=== PATIENT | female | born 2000 | race Caucasian/White ===

== ENCOUNTER → 2021-10-13 | Outpatient (CLI) | payer OTHER ==
--- NOTE | 2021-10-14 06:02 | REP ---
INDICATION: ANATOMY COMPARISON: None. TECHNIQUE: Transabdominal obstetrical ultrasound with color Doppler evaluation. FINDINGS: Examination demonstrates a single live intrauterine in transverse presentation. motion is identified by technologist. Placenta is noted anterior and grade 1 without evidence for placenta previa or abruption. Amniotic fluid volume is normal. Cervix measures 4.1 cm in length and appears closed.. Selected gestational age: 28 weeks 0 days with SCOT 01/05/2022. Gestational age by current measurements 27 weeks 3 days with SCOT 01/09/2022. FHR equals 150 beats per minute. BPD: 6.7 cm; 27 weeks 0 days; 29% HC: 25.6 cm; 27 weeks 6 days; 47% AC: 23.0 cm; 27 weeks 2 days; 36% FL: 5.1 cm; 27 weeks 3 days; 37% HL: 4.7 cm; 27 weeks 3 days; 41% HC/AC: 1.12 Estimated weight 1066 grams (18thpercentile). Anatomical assessment demonstrates normal structures including cranium, choroid plexus, cavum, cerebellum/posterior fossa, facial features, lungs, four-chamber heart/ventricular outflow tracts, diaphragm, stomach, cord insertion/three-vessel cord, kidneys/bladder, spine, and extremities. IMPRESSION: Single live intrauterine in transverse lie demonstrating appropriate estimated weight. Anatomical assessment is complete and normal. <Electronically signed by Brian Schneider > 10/14/21 [id number]
== END ==
LOC: M WHC 09:37
PROVIDERS: ATTEND Obstetrics & Gynecology
DX: Z36.2 Encounter for other antenatal screening follow-up (principal); Z3A.28 28 weeks gestation of pregnancy

== ENCOUNTER → 2021-10-18 | Outpatient (CLI) | payer OTHER ==
[2021-10-18 17:47] LABS: HEMATOCRIT 32.4 % (36.0-47.0); HEMOGLOBIN 10.5 g/dl (12.0-15.5); MEAN CORPUSCULAR HEMOGLOBIN 27.6 pg (27.0-33.0); MEAN CORPUSCULAR HGB CONC 32.4 g/dl (32.0-36.5); MEAN CORPUSCULAR VOLUME 85.3 fl (80.0-96.0); PLATELET COUNT, AUTOMATED 187 10^3/uL (150-450); WHITE BLOOD COUNT 13.3 10^3/uL (4.0-10.0)
== END ==
LOC: M PLALAB 14:48
PROVIDERS: ATTEND Obstetrics & Gynecology
DX: Z36.2 Encounter for other antenatal screening follow-up (principal); Z3A.00 Weeks of gestation of pregnancy not specified
CPT/HCPCS: 36415; 82950; 85027; 86850; 86900; 86901; G0463

== ENCOUNTER → 2021-11-22 | Outpatient (CLI) | payer OTHER | LOC: M LAB 08:32 | PROVIDERS: ATTEND Obstetrics & Gynecology | DX: R73.09 Other abnormal glucose (principal) ==

== ENCOUNTER → 2021-12-13 | Outpatient (REF) | payer OTHER | LOC: M SFHCWAGY 19:24 | PROVIDERS: ATTEND Specialist | DX: Z36.85 Encounter for antenatal screening for Streptococcus B (principal) | CPT/HCPCS: 87081; 87186; G0463 ==

== ENCOUNTER 2022-01-12 12:05 | Inpatient (IN) | payer OTHER ==
[~2022-01-12] VITALS: Ht 160 cm; Wt 91.2 kg
[2022-01-12] VITALS (11 sets, daily range): BP systolic 130–141; BP diastolic 78–93
[2022-01-12] MEDS ORDERED: PRENTAB9 PO (12:25)
[2022-01-12] MEDS: miSOPROStol 50MCG 1/2 TABLET SL SCH ×3 (13:33→21:00)
[2022-01-12 13:42] LABS: HEMATOCRIT 28.1 % (36.0-47.0); HEMOGLOBIN 8.9 g/dl (12.0-15.5); MEAN CORPUSCULAR HEMOGLOBIN 23.3 pg (27.0-33.0); MEAN CORPUSCULAR HGB CONC 31.7 g/dl (32.0-36.5); MEAN CORPUSCULAR VOLUME 73.6 fl (80.0-96.0); PLATELET COUNT, AUTOMATED 147 10^3/uL (150-450); RED BLOOD COUNT 3.82 10^6/uL (4.00-5.40); WHITE BLOOD COUNT 10.8 10^3/uL (4.0-10.0)
[2022-01-12] MEDS ORDERED: SLF 3 ML SYR IV PRN (15:15)
[2022-01-12 16:15] LABS: HIV 1&2 SCREEN CENTAUR NEGATIVE (NEGATIVE)
[2022-01-12] MEDS ORDERED: SLF 3 ML SYR IV SCH (22:00)
[2022-01-13] VITALS (14 sets, daily range): BP systolic 94–176; BP diastolic 54–97
[2022-01-13] MEDS ORDERED: PROMETHAZINE INJ 25 MG/ML VIAL (J2550) IV ONE (00:45)
[2022-01-13] MEDS ORDERED: BUTORPHANOL 2 MG/ML INJ (J0595) IV ONE (00:45)
[2022-01-13] MEDS ORDERED: PENICILLIN G POTASSIUM 5 MU VIAL As Ordered ONE (00:56)
[2022-01-13] MEDS ORDERED: PENICILLIN G POTASSIUM IV 5 MU in D5W MINI-BAG PLUS 100 ML IV STA (00:59)
[2022-01-13] MEDS ORDERED: OXYTOCIN 30 UNITS IN 0.9% NaCl 500ML IV BAG (J2590) As Ordered ONE (01:38)
[2022-01-13] MEDS ORDERED: LIDOCAINE 1% MDV 20ML VIAL As Ordered ONE (03:13)
[2022-01-13] MEDS ORDERED: PENICILLIN G POTASSIUM IV 2.5 MU in IV 1 EA IV SCH (05:00)
[2022-01-13] MEDS ORDERED: ACETAMINOPHEN 500 MG TAB PO PRN (07:35)
[2022-01-13] MEDS ORDERED: MEASLES,MUMPS,RUBELLA VACCINE INJ (MMR-II) (90707) SC SCH (07:35)
[2022-01-13] MEDS ORDERED: MOM 30ML SUSPENSION UDC PO PRN (07:35)
[2022-01-13] MEDS ORDERED: RHOGAM 300 MCG (1500 IU) INJ (J2790) IM SCH (07:35)
[2022-01-13] MEDS ORDERED: DIBUCAINE 1% OINTMENT 30GM TOP PRN (07:35)
[2022-01-13] MEDS ORDERED: ACETAMINOPHEN TAB 650MG DOSE (2X325MG) PO PRN (07:35)
[2022-01-13] MEDS ORDERED: IBUPROFEN 800 MG TAB PO PRN (07:35)
[2022-01-13] MEDS ORDERED: IBUPROFEN 600MG TAB PO PRN (07:35)
[2022-01-13] MEDS ORDERED: DOCUSATE SODIUM 100MG CAPSULE PO PRN (07:35)
[2022-01-13] MEDS ORDERED: METHYLERGONOVINE MALEATE 0.2 MG TAB PO PRN (07:35)
[2022-01-13] MEDS ORDERED: ANUSOL HC CREAM 30GM TOP PRN (07:35)
[2022-01-13] MEDS ORDERED: LIDOCAINE 1% MDV 20ML VIAL INFIL ONE (07:40)
[2022-01-13] MEDS: PRENATAL VITAMINS CHEWABLE TABLET PO SCH (08:38)
[2022-01-14 06:00] VITALS: BP 129/77
[2022-01-14] MEDS: PRENATAL VITAMINS CHEWABLE TABLET PO SCH (09:38)
[2022-01-14] MEDS ORDERED: IBUP-1022 PO (11:28)
[2022-01-14] MEDS ORDERED: COLA100C5 PO (11:28)
[2022-01-14] MEDS ORDERED: ACET-683 PO (11:28)
== END 2022-01-14 18:15 | disposition home or self-care (01) | DRG 807 ==
LOC: M LDI 12:05 → M OBS 01-13 10:27
PROVIDERS: ADMIT Specialist; ATTEND Advanced Practice Midwife
PROC: 3E0P7GC Introduction of Other Therapeutic Substance into Female Reproductive, Via Natural or Artificial Opening (ICD-10-PCS; 2022-01-12)
PROC: 0HQ9XZZ Repair Perineum Skin, External Approach (ICD-10-PCS; 2022-01-12)
PROC: 10E0XZZ Delivery of Products of Conception, External Approach (ICD-10-PCS; principal; 2022-01-13)
DX: O48.0 Post-term pregnancy (principal); Z37.0 Single live birth; Z3A.41 41 weeks gestation of pregnancy; O70.0 First degree perineal laceration during delivery

== ENCOUNTER → 2025-05-19 | Outpatient (CLI) | payer OTHER ==
[~2025-05-19] MED LIST: ACET-683 PO; COLA100C5 PO; IBUP-1022 PO; IBUP80TA PO; PRENTAB9 PO
[2025-05-19 18:20] LABS: LDH LACTATE DEHYDROGENASE 159 U/L (120-246); PLATELET COUNT, AUTOMATED 150 10^3/uL (150-450)
[2025-05-19 18:21] LABS: ALT/SGPT < 9 U/L (7.0-40); AST/SGOT 15 U/L (<34); CREATININE FOR GFR 0.61 MG/DL (0.55-1.30); GLOMERULAR FILTRATION RATE > 90.0 (>60)
[2025-05-19 18:32] LABS: TOTAL PROTEIN,RANDOM URINE 43.1 MG/DL (0.0-14.0)
== END ==
LOC: M PLALAB 14:30
PROVIDERS: ATTEND Nurse Practitioner Family
DX: O16.3 Unspecified maternal hypertension, third trimester (principal)

== ENCOUNTER 2025-05-28 16:17 | Inpatient (IN) | payer OTHER ==
[~2025-05-28] VITALS: Ht 162.6 cm; Wt 91.4 kg
[~2025-05-28 16:17] MED LIST changes: -IBUP80TA PO
[2025-05-28] MEDS ORDERED: HOME MED LIST COMPLETE! XX SCH (16:40)
[2025-05-28 16:44] VITALS: BP 132/72
[2025-05-28] MEDS ORDERED: TRANEXAMIC ACID INJection 1,000 MG in NS 100 ML IV PRN (16:45)
[2025-05-28] MEDS ORDERED: OXYTOCIN DRIP 30 UNITS in IV 1 EA IV PRN (16:45)
[2025-05-28] MEDS ORDERED: LIDOCAINE 1% MDV 20 ML VIAL INFIL PRN (16:45)
[2025-05-28] MEDS ORDERED: CARBOPROST TROMETHAMINE 250 MCG/ML AMP IM PRN (16:45)
[2025-05-28] MEDS: miSOPROStol 50 MCG 1/2 TABLET PO SCH (17:04)
[2025-05-28 17:15] LABS: PLATELET COUNT, AUTOMATED 160 10^3/uL (150-450)
[2025-05-28 18:07] VITALS: BP 119/64
[2025-05-28 18:23] LABS: HEPATITIS C VIRUS ABY INDEX 0.02 INDEX (<0.8)
[2025-05-28 18:44] LABS: HIV 1&2 SCREEN NEGATIVE (NEGATIVE)
[2025-05-28 21:42] VITALS: BP 115/68
[2025-05-29] VITALS (23 sets, daily range): BP systolic 95–135; BP diastolic 51–80; O2SAT 96–97
[2025-05-29] MEDS: LR 1,000 ML IV SCH (04:10)
[2025-05-29] MEDS: OXYTOCIN DRIP 30 UNITS in IV 1 EA IV SCH ×2 (04:11→14:49)
[2025-05-29] MEDS: PROMETHAZINE 25MG/ML 1ML VIAL IV ONE (10:19)
[2025-05-29] MEDS: BUTORPHANOL 2 MG/ML 1 ML VIAL IV ONE (10:19)
[2025-05-29] MEDS ORDERED: CALCIUM CARBONATE 500 MG CHEW U/D PO PRN (12:40)
[2025-05-29] MEDS ORDERED: DOCUSATE SODIUM 100 MG CAPSULE PO PRN (12:40)
[2025-05-29] MEDS ORDERED: DIBUCAINE 1% OINTMENT 30 GM TOP PRN (12:40)
[2025-05-29] MEDS ORDERED: ANUSOL HC CREAM 30 GM TOP PRN (12:40)
[2025-05-29] MEDS ORDERED: IBUPROFEN 600 MG TAB PO PRN (12:40)
[2025-05-29] MEDS ORDERED: RHOGAM 300MCG (1500IU) INJ IM SCH (12:40)
[2025-05-29] MEDS ORDERED: METHYLERGONOVINE MALEATE 0.2 MG TAB PO PRN (12:40)
[2025-05-29] MEDS ORDERED: MOM 30 ML SUSPENSION UDC PO PRN (12:40)
[2025-05-29] MEDS ORDERED: ACETAMINOPHEN 325 MG TAB PO PRN (12:40)
[2025-05-29] MEDS: IBUPROFEN 800 MG TAB PO PRN (13:12)
[2025-05-29] MEDS ORDERED: METHYLERGONOVINE MALEATE 0.2 MG/ML 1 ML VIAL As Ordered ONE (14:00)
[2025-05-29] MEDS: METHYLERGONOVINE MALEATE 0.2 MG/ML 1 ML VIAL IM PRN (14:02)
[2025-05-29] MEDS ORDERED: OXYTOCIN 30UNITS IN 0.9% NaCl 500ML IV BAG As Ordered ONE (14:14)
[2025-05-29] MEDS ORDERED: MORPHINE 4 MG/ML 1 ML VIAL As Ordered ONE (14:19)
[2025-05-29] MEDS: MORPHINE 4 MG/ML 1 ML VIAL IV ONE (14:31)
[2025-05-29] MEDS: ACETAMINOPHEN 500 MG TAB PO PRN (16:52)
[2025-05-30 05:50] VITALS: BP 100/58; O2SAT 100
[2025-05-30] MEDS: PRENATAL VITAMINS CHEWABLE TABLET PO SCH (09:47)
[2025-05-30 18:00] VITALS: BP 106/62; O2SAT 100
[2025-05-31 05:45] VITALS: BP 100/66; O2SAT 98
[2025-05-31] MEDS ORDERED: MEASLES,MUMPS,RUBELLA VACCINE INJ (MMR-II) SC.IMMUN ONE (09:00)
[2025-05-31] MEDS ORDERED: ACET-683 PO (10:39)
[2025-05-31] MEDS ORDERED: IBUP80TA PO (10:39)
== END 2025-05-31 14:45 | disposition home or self-care (01) | DRG 807 ==
LOC: M LDI 16:17 → M OBS 05-29 15:19
PROVIDERS: ADMIT Obstetrics & Gynecology; ATTEND Advanced Practice Midwife
PROC: 3E0P7GC Introduction of Other Therapeutic Substance into Female Reproductive, Via Natural or Artificial Opening (ICD-10-PCS; 2025-05-28)
PROC: 10E0XZZ Delivery of Products of Conception, External Approach (ICD-10-PCS; principal; 2025-05-29)
PROC: 10907ZC Drainage of Amniotic Fluid, Therapeutic from Products of Conception, Via Natural or Artificial Opening (ICD-10-PCS; 2025-05-29)
DX: O48.0 Post-term pregnancy (principal); Z37.0 Single live birth; Z3A.40 40 weeks gestation of pregnancy; O69.81X0 Labor and delivery complicated by cord around neck, without compression, not applicable or unspecified